=== PATIENT | male | born 1950 | race Caucasian/White ===

== ENCOUNTER 2017-04-25 15:00 | Outpatient (CLI) | payer OTHER ==
[2017-04-25 18:17] LABS: PSA FREE 1.83 ng/mL (0.16-2.81)
[2017-04-25 18:18] LABS: PSA TOTAL 6.182 ng/mL (0.000-2.000)
== END 2017-04-25 15:01 | disposition home or self-care (01) ==
LOC: LAB.F 15:00
PROVIDERS: ATTEND Family Medicine
DX: I25.10 Atherosclerotic heart disease of native coronary artery without angina pectoris (principal); E11.9 Type 2 diabetes mellitus without complications; E78.5 Hyperlipidemia, unspecified; I10 Essential (primary) hypertension; C61 Malignant neoplasm of prostate; R97.20 Elevated prostate specific antigen [PSA]
CPT/HCPCS: 36415; 84154

== ENCOUNTER 2017-12-03 08:00 | Outpatient (CLI) | payer OTHER ==
[2017-12-03 17:42] LABS: BILIRUBIN,URINE NEGATIVE (NEGATIVE); GLUCOSE, URINE (UA) NEGATIVE (NEGATIVE); KETONES,URINE (UA) NEGATIVE (NEGATIVE); LEUKOCYTE ESTERASE, URINE NEGATIVE (NEGATIVE); NITRITE,URINE NEGATIVE (NEGATIVE); OCCULT BLOOD,URINE NEGATIVE (NEGATIVE); PROTEIN,URINE NEGATIVE (NEGATIVE); UROBILINOGEN,URINE 0.2 (NORMAL) E.U./dL (NORMAL)
[2017-12-03 17:52] LABS: BACTERIA,URINE None Seen /HPF (None Seen); CLARITY,URINE CLEAR (CLEAR); RBC,URINE 0-5 /HPF (0-5); SQUAMOUS EPITHELIAL CELL,UR NONE SEEN (<= Few)
== END 2017-12-03 08:01 ==
LOC: LAB.R 08:00
PROVIDERS: ATTEND Nurse Practitioner Family
DX: R31.9 Hematuria, unspecified (principal)
CPT/HCPCS: 81001; 87086

== ENCOUNTER 2017-12-18 11:28 | Outpatient (CLI) | payer OTHER ==
--- NOTE | 2017-12-18 12:58 | XRAY Report ---
Procedure Date: 12/18/2017 Accession Number: [id number] / [id number] Procedure: XRS - Lumbar Spine 2 View CPT Code: FULL RESULT: EXAM: Lumbar Spine 2 View DATE: 12/18/2017 11:41 AM CLINICAL HISTORY: LOW BACK PAIN, CHRONIC COMPARISON: 04/14/2007 TECHNIQUE: 3 views. FINDINGS: Alignment: Mild degenerative dextroscoliosis. No subluxation. Bones: Five svx-vdp-dvhsfzu lumbar vertebral bodies are present. No fractures or bone lesions. Disks: Moderate degenerative disc disease. Facets: Moderate facet arthropathy. Sacroiliac Joints: Unremarkable. Soft Tissues: Normal. The visualized bowel gas pattern is normal. IMPRESSION: Moderate degenerative changes, with mild degenerative dextroscoliosis. No evidence of interval fracture. RADIA
== END 2017-12-18 11:29 | disposition home or self-care (01) ==
LOC: DI.S 11:28
PROVIDERS: ATTEND Family Medicine
DX: M51.36 Other intervertebral disc degeneration, lumbar region (principal); M47.896 Other spondylosis, lumbar region; M41.86 Other forms of scoliosis, lumbar region
CPT/HCPCS: 72100

== ENCOUNTER 2018-09-28 14:28 | Emergency (ER) | payer OTHER ==
--- NOTE | 2018-09-28 15:36 | XRAY Report ---
Reason: injury Procedure Date: 09/28/2018 Accession Number: [id number] / [id number] Procedure: XR - Hand 3 View RT CPT Code: FULL RESULT: EXAM: RIGHT HAND RADIOGRAPHY EXAM DATE: 09/28/2018 03:24 PM. CLINICAL HISTORY: Injury. COMPARISON: None. TECHNIQUE: 3 views. FINDINGS: Bones: There is a fracture deformity involving the distal tuft of the second distal phalanx. No intra-articular extension of fracture. Joints: No subluxation or dislocation. Soft Tissues: There are multiple punctate densities in the soft tissue or on skin surface of the distal digit. IMPRESSION: 1. Comminuted fracture deformity distal tip of the second distal phalanx with possible tiny foreign bodies or skin calcifications of the distal digit. RADIA
[2018-09-28] MEDS ORDERED: BUPIVACAINE 0.5% PF 10 ML VIAL SUBQ STA (16:40)
[2018-09-28] MEDS ORDERED: TETANUS/DIPHTHERIA/PERTUSSIS 0.5 ML SYRINGE IM ONE (17:40)
--- NOTE | 2018-09-28 17:43 | ED Physician Documentation ---
PD HPI UPPER EXT INJURY - Stated complaint Stated Complaint: R FINGER INJ - Chief complaint Chief Complaint: Laceration - History obtained from History obtained from: Patient - History of Present Illness Location: Right, Finger (index) Type of injury: Crush Where injury occurred: Work Timing - onset: Today Timing - duration: Hours Timing - details: Abrupt onset, Still present Improved by: Rest, Immobilization Worsened by: Moving, Palpating Associated symptoms: No: Weakness, Numbness, Tingling Contributing factors: No: Anticoagulated Similar symptoms before: Diagnosis (laceration) Recently seen: Not recently seen - Additonal information Additional information: 68-year-old male with a history of hypertension 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 The gear brought his fingertip into the gear and crushed it. He immediately pulled his finger out and now has come to the emergency department for repair. Review of Systems Constitutional: denies: Fever Throat: denies: Sore throat Respiratory: denies: Cough GI: denies: Vomiting PD PAST MEDICAL HISTORY - Past Medical History Past Medical History: No - Past Surgical History Past Surgical History: No - Present Medications Home Medications: Ambulatory Orders Medication Instructions Recorded Confirmed Amox/Clav 875/125 [Augmentin] 1 each PO Q12H #14 tablet 09/28/18 Atenolol 50 mg PO 09/28/18 Doxazosin [Cardura] 4 mg PO DAILY 09/28/18 09/28/18 Finasteride 5 mg PO 09/28/18 09/28/18 Hydrocodone/Acetaminophen 1 - 2 each PO Q6H PRN #14 tablet 09/28/18 [Hydrocodon-Acetaminophen 5-325] Lisinopril 10 mg PO 09/28/18 Simvastatin 80 mg PO 09/28/18 Zolpidem [Ambien] 10 mg PO HS 09/28/18 09/28/18 hydroCHLOROthiazide 25 mg PO 09/28/18 09/28/18 [Hydrochlorothiazide] - Allergies Allergies/Adverse Reactions: Allergies Allergy/AdvReac Type Severity Reaction Status Date / Time Sulfa (Sulfonamide Allergy Rash Verified 09/28/18 14:34 Antibiotics) - Social History Does the pt smoke?: No Smoking Status: Never smoker Does the pt drink ETOH?: Yes Does the pt have substance abuse?: No PD ED PE NORMAL - Vitals Vital signs reviewed: Yes (hypertensive ) - General General: Alert and oriented X 3, No acute distress, Well developed/nourished - HEENT HEENT: Atraumatic, PERRL, EOMI - Respiratory Respiratory: No respiratory distress - Derm Derm: Normal color, Warm and dry, No rash - Extremities Extremities: Other (The right index finger tip is macerated and the nail is torn apart. There are multiple flaps of skin and nail bed and the wound is heavily contaminated with metal shavings and grease. The wound extends to the distal tuft and a portion of tuft is missing. The maceration extends to the proximal nailbed and no further. 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 Comminuted fracture deformity distal tip of the second distal phalanx with possible tiny foreign bodies are skin calcifications in the distal digit.), EMP read indepedently, See rad report Procedures - Laceration (location) finger tip Length in cm: 3 Wound type: Stellate, Irregular, Flap, Heavily Contaminated Neurovascular status: Sensory intact, Motor intact, Vascular intact Anesthesia: Marcaine 0.5%, OTH (digital block) Wound Preparation: Hibiclens, Irrigated copiously NS, Debrided moderately, Debrided extensively, Wound explored, To the base, Wound edges modified, Multiple flaps aligned Skin layer closure: Nylon, Interrupted, Size #-0 - enter number (5-0), Other (2 sutures of vicryl are placed into the nailbed and the finger tip is shortened by this.) Other: Patient tolerated well, No complications, Neurovascular intact, Dressing applied, Tetanus booster given Complexity: Intermediate PD MEDICAL DECISION MAKING - ED course Complexity details: reviewed results, re-evaluated patient, considered differential, d/w patient ED course: 68-year-old male with a crush injury in a machine here to the fingertip has maceration loss of tissue and bone to the distal fingertip this is reconstructed with realignment of multiple flaps and extensive debriding. He does have open fracture and antibiotic prophylaxis is indicated. Departure - Departure Disposition: 01 Home, Self Care Clinical Impression: Nailbed injury, Open fracture of tuft of distal phalanx of finger Condition: Stable Instructions: ED Fx Finger Open, ED Avulsion Nail Complete Follow-Up: Vineet Richter MD [Primary Care Provider] - Prescriptions: Amox/Clav 875/125 [Augmentin] 1 each PO Q12H #14 tablet Hydrocodone/Acetaminophen [Hydrocodon-Acetaminophen 5-325] 1 - 2 each PO Q6H PRN #14 tablet PRN Reason: pain
[2018-09-28 18:00] VITALS: BP 134/79
== END 2018-09-28 18:01 | disposition home or self-care (01) ==
LOC: ED 14:28
DX: S67.190A Crushing injury of right index finger, initial encounter (principal); S62.630B Displaced fracture of distal phalanx of right index finger, initial encounter for open fracture; S61.320A Laceration with foreign body of right index finger with damage to nail, initial encounter; W31.89XA Contact with other specified machinery, initial encounter; Y93.89 Activity, other specified; Y92.89 Other specified places as the place of occurrence of the external cause; Y99.0 Civilian activity done for income or pay; Z23 Encounter for immunization; I10 Essential (primary) hypertension
CPT/HCPCS: 1040M; 13132; 73130; 90471; 90715; 99283; 99284

== ENCOUNTER 2021-08-30 10:41 | Outpatient (CLI) | payer OTHER | END 2021-08-30 10:42 | disposition home or self-care (01) | LOC: DI 10:41 | PROVIDERS: ATTEND Internal Medicine Cardiovascular Disease | DX: R06.00 Dyspnea, unspecified (principal); I25.10 Atherosclerotic heart disease of native coronary artery without angina pectoris; I51.7 Cardiomegaly | CPT/HCPCS: 93306 ==

== ENCOUNTER 2022-11-14 06:37 | Day surgery (SDC) | payer OTHER ==
[~2022-11-14 06:37] MED LIST: CYCLOPENTOLATE 1% OPHTH DROPS 2 ML ONE; KETOROLAC 0.45% OPHTH DROPS ONE; PHENYLEPHRINE 2.5% OPHTH 2 ML DROPS ONE; PROPARACAINE 0.5% OPHTH DROPS 15 ML ONE
[2022-11-14] MEDS ORDERED: LACTATED RINGERS 1,000 ML IV ONE ×2 (06:39→08:21)
--- NOTE | 2022-11-14 07:42 | ANESTHESIA ---
Pre-Anesthesia VS, & Labs - Diagnosis left cataract - Procedure left cataract with IOL Vital Signs: Temp Pulse Resp BP Pulse Ox O2 Flow Rate 36.3 C L 48 L 12 128/77 96 11/14/22 06:42 11/14/22 06:42 11/14/22 06:42 11/14/22 06:42 11/14/22 06:42 Height: 6 ft Weight (kg): 103.7 kg Body Mass Index: 31.0 BMI Classification: Obese - NPO >8 hours Home Medications and Allergies Home Medications: Ambulatory Orders Aspirin [Aspirin EC] 81 mg PO DAILY 11/13/22 Rosuvastatin Calcium [Crestor] 40 mg PO DAILY 11/13/22 Temazepam [Restoril] 15 mg PO HS 11/13/22 Meloxicam [Mobic] 15 mg PO DAILY 11/14/22 Doxazosin [Cardura] 4 mg PO BID 09/28/18 Finasteride 5 mg PO DAILY 09/28/18 atenoloL [Atenolol] 50 mg PO DAILY 09/28/18 hydroCHLOROthiazide [Hydrochlorothiazide] 25 mg PO DAILY 09/28/18 lisinopriL [Lisinopril] 10 mg PO DAILY 09/28/18 Aspirin [Aspirin EC] 81 mg PO DAILY 11/13/22 Rosuvastatin Calcium [Crestor] 40 mg PO DAILY 11/13/22 Temazepam [Restoril] 15 mg PO HS 11/13/22 Meloxicam [Mobic] 15 mg PO DAILY 11/14/22 Allergies/Adverse Reactions: Allergies Allergy/AdvReac Type Severity Reaction Status Date / Time Sulfa (Sulfonamide Allergy Rash Verified 09/28/18 14:34 Antibiotics) Anes History & Medical History - Anesthetic History Anesthesia Complications: reports: No previous complications - Medical History Cardiovascular: reports: Hypertension, High cholesterol, [place] Pulmonary: reports: None Gastrointestinal: reports: None Urinary: reports: Benign prostate hypertrophy Musculoskeletal: reports: Gout Skin: reports: None Smoking Status: Never smoker - Surgical History Cardiothoracic: reports: Coronary stent Exam General: Alert, Oriented x3 Dental: WNL, Dentures full Upper, Partials Lower Mouth Opening: Greater than 4 Fingerbreadths Neck Mobility: Normal Mallampati classification: I Thyromental Distance: greater than 6 cm Cardiovascular: Regular rate, Normal S1, Normal S2 Plan Anesthesia Type: MAC Consent for Procedure(s) Verified and Reviewed: Yes Code Status: Attempt Resuscitation ASA classification: 3-Severe systemic disease Is this case an emergency?: No
[2022-11-14] MEDS ORDERED: MIDAZOLAM 2 MG/2 ML VIAL ONE (07:49)
[2022-11-14] MEDS ORDERED: BRIMONIDINE 0.2% OPHTH DROPS 5 ML ONE (07:54)
[2022-11-14] MEDS ORDERED: EPINEPHrine 1 MG/ML AMP ONE (07:54)
[2022-11-14] MEDS ORDERED: TRIAMCIN/MOXIFLOX OPHTHALMIC 0.6 ML VIAL IO ONE ×2 (07:54→08:15)
[2022-11-14] MEDS ORDERED: TIMOLOL 0.5% OPHTH DROPS ONE (07:54)
[2022-11-14] MEDS ORDERED: VANCOMYCIN OPHTH (TOPICAL) 10 MG/ML SYRINGE ONE (07:55)
[2022-11-14] MEDS ORDERED: BSS/LIDOCAINE/EPINEPHRINE 1 ML VIAL ONE (07:55)
[2022-11-14] MEDS ORDERED: BRIMONIDINE 0.2% OPHTH DROPS 5 ML OPTH ONE (08:13)
[2022-11-14] MEDS ORDERED: fentaNYL 100 MCG/2 ML VIAL ONE (08:13)
[2022-11-14] MEDS ORDERED: TIMOLOL 0.5% OPHTH DROPS OPTH ONE (08:14)
[2022-11-14] MEDS ORDERED: EPINEPHrine 1 MG/ML AMP IR ONE (08:14)
[2022-11-14] MEDS ORDERED: BSS/LIDOCAINE/EPINEPHRINE 1 ML SYRINGE IO ONE (08:15)
[2022-11-14] MEDS ORDERED: VANCOMYCIN OPHTH (TOPICAL) 10 MG/ML SYRINGE TOP ONE (08:16)
[2022-11-14] MEDS ORDERED: PROPARACAINE 0.5% OPHTH DROPS 15 ML EACHEYE ONE (08:16)
--- NOTE | 2022-11-14 08:29 | OPERATIVE REPORT ---
Operative Report - Other Other Information/Narrative: Date of Surgery: 11/14/22 Preop Dx: Visually significant cataract left eye. This was the first cataract surgery. Postop Dx: Same Procedure: Phacoemulsification with posterior chamber intraocular lens implant left eye Surgeon: Dr. Alfredo Mueller Anesthesia: Monitored anesthesia care Complications: None Operative Indications: This is a 72-year-old M with progressive vision loss in the left eye due to 2-3+ nuclear sclerotic and 3+ cortical cataract. Best corrected visual acuity was 20/30 with glare to 20/70 vision in the left eye. Indications for surgery were: - Overall decrease in vision - Difficulty seeing street signs - Difficulty driving in low light or at night - Difficulty driving at night because of headlights from other vehicles - Difficulty with glare or bright lights in any situation The patient was consented at length concerning the risks and benefits of cataract surgery after which the patient expressed a desire to proceed with surgery. Operative Procedure: The patient was taken into OR#3 and placed under monitored anesthesia care. A surgical time-out was conducted confirming correct patient, correct procedure, and correct surgical site. The patient was given topical anesthesia and then prepped and draped in the usual sterile fashion. The eye was entered at the 6 and 3 oclock positions. Intracameral Shugarcaine was injected into the anterior chamber followed by a dispersive viscoelastic. A continuous-tear curvilinear capsulorhexis was performed. The nucleus was hydrodissected and phacoemulsified. The cortex was evacuated using automated infusion and aspiration. A cohesive viscoelastic was injected into the capsular bag and a 19.0 diopter intraocular lens was inserted into the bag. Infusion and aspiration were used to evacuate the viscoelastic materials from the eye. The wounds were hydrated and the eye inflated to physiologic pressure using balanced salt solution. Approximately 0.25ml of a mixture of triamcinolone and moxifloxacin was injected trans-sclerally into the vitreous in the inferotemporal quadrant using a 30 gauge cannula. An additional 0.25ml of a mixture of triamcinolone and moxifloxacin was injected subconjunctivally in the superior quadrant for infection and inflammation prophylaxis. Wound integrity was checked with Weck-Nai sponges. The patient was taken from the operating room in good condition and given post-op instructions.
--- NOTE | 2022-11-14 08:50 | ANESTHESIA POST OP EVALUATION ---
Anesthesia Post Eval - Post Anesthesia Eval Vitals: Last Vital Signs Temp 36.3 C L 11/14/22 08:21 Pulse 45 L 11/14/22 08:21 Resp 16 11/14/22 08:21 BP 116/75 11/14/22 08:21 Pulse Ox 97 11/14/22 08:21 O2 Flow Rate CV Function Including HR & BP: Stable Pain Control: Satisfactory Nausea & Vomiting: Negative Mental Status: Baseline Respiratory Status: Airway Patent Hydration Status: Satisfactory Anesthesia Complications: None
[2022-11-14 08:53] VITALS: BP 123/68
== END 2022-11-14 06:38 | disposition home or self-care (01) ==
LOC: SDS 06:37
PROVIDERS: ATTEND Ophthalmology
DX: H25.812 Combined forms of age-related cataract, left eye (principal); E66.9 Obesity, unspecified; Z68.31 Body mass index [BMI] 31.0-31.9, adult; I25.2 Old myocardial infarction; N40.0 Benign prostatic hyperplasia without lower urinary tract symptoms
CPT/HCPCS: 66984; A9270; J3490; J7120

== ENCOUNTER 2022-12-26 06:49 | Day surgery (SDC) | payer OTHER ==
[2022-12-26] MEDS ORDERED: LACTATED RINGERS 1,000 ML IV ONE (06:56)
--- NOTE | 2022-12-26 07:37 | ANESTHESIA ---
Pre-Anesthesia VS, & Labs - Diagnosis R cataract - Procedure R PhacoIOL Vital Signs: Temp Pulse Resp BP Pulse Ox O2 Flow Rate 36.2 C L 56 L 14 127/87 H 97 12/26/22 07:01 12/26/22 07:01 12/26/22 07:01 12/26/22 07:01 12/26/22 07:01 Height: 6 ft 4 in Weight (kg): 102 kg Body Mass Index: 27.3 BMI Classification: Overweight - NPO >8 hours Home Medications and Allergies Doxazosin [Cardura] 4 mg PO BID 09/28/18 Finasteride 5 mg PO DAILY 09/28/18 atenoloL [Atenolol] 50 mg PO DAILY 09/28/18 hydroCHLOROthiazide [Hydrochlorothiazide] 25 mg PO DAILY 09/28/18 lisinopriL [Lisinopril] 10 mg PO DAILY 09/28/18 Aspirin [Aspirin EC] 81 mg PO DAILY 11/13/22 Rosuvastatin Calcium [Crestor] 40 mg PO DAILY 11/13/22 Temazepam [Restoril] 15 mg PO HS 11/13/22 Meloxicam [Mobic] 15 mg PO DAILY 11/14/22 Allergies/Adverse Reactions: Allergies Allergy/AdvReac Type Severity Reaction Status Date / Time Sulfa (Sulfonamide Allergy Rash Verified 09/28/18 14:34 Antibiotics) Anes History & Medical History - Anesthetic History Anesthesia Complications: reports: No previous complications Family history of Anesthesia Complications: Denies Family history of Malignant Hyperthermia: Denies - Medical History Cardiovascular: reports: Hypertension, High cholesterol, [place] Pulmonary: reports: None Gastrointestinal: reports: None Urinary: reports: Benign prostate hypertrophy Musculoskeletal: reports: Gout Skin: reports: None Smoking Status: Never smoker - Surgical History Eyes Ears Nose Throat (EENT): reports: Cataracts Cardiothoracic: reports: Coronary stent Exam General: Alert, Oriented x3, Cooperative Dental: WNL Mouth Openin Fingerbreadth Neck Mobility: Normal Mallampati classification: I Thyromental Distance: 4-6 cm Respiratory: Lungs clear Cardiovascular: Regular rate Plan Anesthesia Type: MAC Consent for Procedure(s) Verified and Reviewed: Yes Code Status: Attempt Resuscitation ASA classification: 2-Mild systemic disease Is this case an emergency?: No
[2022-12-26] MEDS ORDERED: BRIMONIDINE 0.2% OPHTH DROPS 5 ML OPTH ONE (07:54)
[2022-12-26] MEDS ORDERED: TIMOLOL 0.5% OPHTH DROPS OPTH ONE (07:54)
[2022-12-26] MEDS ORDERED: EPINEPHrine 1 MG/ML AMP IR ONE (07:54)
[2022-12-26] MEDS ORDERED: TRIAMCIN/MOXIFLOX OPHTHALMIC 0.6 ML VIAL IO ONE ×3 (07:55→07:57)
[2022-12-26] MEDS ORDERED: BSS/LIDOCAINE/EPINEPHRINE 1 ML VIAL ONE ×2 (07:56→08:01)
[2022-12-26] MEDS ORDERED: TIMOLOL 0.5% OPHTH DROPS ONE (07:56)
[2022-12-26] MEDS ORDERED: BRIMONIDINE 0.2% OPHTH DROPS 5 ML ONE (07:56)
[2022-12-26] MEDS ORDERED: EPINEPHrine 1 MG/ML AMP ONE (07:56)
[2022-12-26] MEDS ORDERED: VANCOMYCIN OPHTH (TOPICAL) 10 MG/ML SYRINGE ONE (07:56)
[2022-12-26] MEDS ORDERED: BSS/LIDOCAINE/EPINEPHRINE 1 ML SYRINGE IO ONE (07:56)
[2022-12-26] MEDS ORDERED: VANCOMYCIN OPHTH (TOPICAL) 10 MG/ML SYRINGE TOP ONE (07:57)
[2022-12-26] MEDS ORDERED: PROPARACAINE 0.5% OPHTH DROPS 15 ML EACHEYE ONE (07:57)
[2022-12-26] MEDS ORDERED: MIDAZOLAM 2 MG/2 ML VIAL ONE (07:58)
[2022-12-26] MEDS ORDERED: LACTATED RINGERS 750 ML IV ONE (08:25)
--- NOTE | 2022-12-26 08:33 | OPERATIVE REPORT ---
Operative Report - Other Other Information/Narrative: Date of Surgery: 12/26/22 Preop Dx: Visually significant cataract right eye. Cataract surgery was performed in the left eye on . Postop Dx: Same Procedure: Phacoemulsification with posterior chamber intraocular lens implant right eye Surgeon: Dr. Alfredo Mueller Anesthesia: Monitored anesthesia care Complications: None Operative Indications: This is a 72-year-old M with progressive vision loss in the right eye due to 3+ nuclear sclerotic and 2-3+ cortical cataract. Best corrected visual acuity was 20/20 with glare to 20/50 vision in the right eye. Indications for surgery were: - Overall decrease in vision - Difficulty seeing words on a computer screen - Difficulty reading - Difficulty seeing words, closed captions, or game scores on TV - Difficulty seeing street signs - Difficulty driving in low light or at night - Difficulty driving at night because of headlights from other vehicles - Difficulty with glare or bright lights in any situation The patient was consented at length concerning the risks and benefits of cataract surgery after which the patient expressed a desire to proceed with surgery. Operative Procedure: The patient was taken into OR#3 and placed under monitored anesthesia care. A surgical time-out was conducted confirming correct patient, correct procedure, and correct surgical site. The patient was given topical anesthesia and then prepped and draped in the usual sterile fashion. The eye was entered at the 6 and 3 oclock positions. Intracameral Shugarcaine was injected into the anterior chamber followed by a dispersive viscoelastic. A continuous-tear curvilinear capsulorhexis was performed. The nucleus was hydrod issected and phacoemulsified. The cortex was evacuated using automated infusion and aspiration. A cohesive viscoelastic was injected into the capsular bag and a 19.0 diopter intraocular lens was inserted into the bag. Infusion and aspiration were used to evacuate the viscoelastic materials from the eye. The wounds were hydrated and the eye inflated to physiologic pressure using balanced salt solution. Approximately 0.25ml of a mixture of triamcinolone and moxifloxacin was injected trans-sclerally into the vitreous in the inferotemporal quadrant using a 30 gauge cannula. An additional 0.25ml of a mixture of triamcinolone and moxifloxacin was injected subconjunctivally in the superior quadrant for infection and inflammation prophylaxis. Wound integrity was checked with Weck-Nai sponges. The patient was taken from the operating room in good condition and given post-op instructions.
[2022-12-26 08:45] VITALS: BP 108/71
--- NOTE | 2022-12-26 15:37 | ANESTHESIA POST OP EVALUATION ---
Anesthesia Post Eval - Post Anesthesia Eval Vitals: Last Vital Signs Temp 36.2 C L 12/26/22 08:25 Pulse 71 12/26/22 08:44 Resp 14 12/26/22 08:44 BP 108/71 12/26/22 08:44 Pulse Ox 98 12/26/22 08:44 O2 Flow Rate CV Function Including HR & BP: Stable Pain Control: Satisfactory Nausea & Vomiting: Negative Mental Status: Baseline Respiratory Status: Airway Patent Hydration Status: Satisfactory Anesthesia Complications: None
== END 2022-12-26 06:50 | disposition home or self-care (01) ==
LOC: SDS 06:49
PROVIDERS: ATTEND Ophthalmology
DX: H25.811 Combined forms of age-related cataract, right eye (principal); I10 Essential (primary) hypertension
CPT/HCPCS: 66984; A9270; J3490; J7120

== ENCOUNTER 2023-11-11 07:04 | Outpatient (CLI) | payer MEDICARE ==
--- NOTE | 2023-11-11 15:46 | XRAY Report ---
PROCEDURE: Lumbar Spine 2-3V INDICATIONS: NEUROPATHY, CLAUDICATION TECHNIQUE: 3 views of the lumbar spine were acquired. COMPARISON: X-ray lumbar spine 12/18/2017 FINDINGS: Bones: 5 liv-gtw-pbemerm vertebrae are present. There is minimal rightward curvature. Trace retroli sthesis is present at L2 on L3 trace anterolisthesis of L3 on L4. Multilevel degenerative disc space narrowing severe at L4-5 and L5-S1 with severe foraminal narrowing at these levels. No vertebral body compression fractures. No suspicious bony lesions. Soft tissues: Overlying bowel gas pattern is normal. No suspicious soft tissue calcifications. IMPRESSION: Prominent degenerative changes most severe at L4-5, L5-S1. Reviewed by: Rahda Smallwood MD on 11/11/2023 3:44 PM PDT Approved by: Radha Smallwood MD on 11/11/2023 3:44 PM PDT Station ID: [id number]
--- NOTE | 2023-11-12 17:09 | Ultrasound Report ---
PROCEDURE: Ankle Brachial Index INDICATIONS: NEUROPATHY, CLAUDICATION TECHNIQUE: Ankle-brachial indices were obtained bilaterally and recorded. COMPARISONS: None. FINDINGS: Right brachial: 94 mmHg Right ankle: 127 mmHg Right ankle brachial index (KODI): 1.3 Left brachial: ): 98mmHg Left ankle: ): 112mmHg Left ankle brachial index (KODI): 1.1 Triphasic waveforms in the bilateral posterior tibial and dorsalis pedis arteries. Healing potential: Ankle pressures >55 mm Hg in non-diabetics and >80 mm Hg in diabetics are likely to achieve primary h ealing of ischemic foot ulcers. Toe pressures >30 mm Hg are likely to achieve primary healing of ischemic foot ulcers, toe or transme tatarsal amputations. IMPRESSION: 1.Bilateral resting ABIs are normal measuring 1.3 on the right and 1.1 on the left. 2.Triphasic waveforms in the bilateral posterior tibial and dorsalis pedis arteries. Reviewed by: Artur Malave MD on 11/12/2023 5:07 PM PDT Approved by: Artur Malave MD on 11/12/2023 5:07 PM PDT Station ID: [id number]
== END 2023-11-11 07:05 | disposition home or self-care (01) ==
LOC: DI 07:04
PROVIDERS: ATTEND Registered Nurse
DX: M47.816 Spondylosis without myelopathy or radiculopathy, lumbar region (principal); M47.817 Spondylosis without myelopathy or radiculopathy, lumbosacral region; I73.9 Peripheral vascular disease, unspecified
CPT/HCPCS: 93922

== ENCOUNTER 2023-12-02 07:49 | Outpatient (CLI) | payer MEDICARE ==
--- NOTE | 2023-12-02 17:08 | MRI Report ---
PROCEDURE: Lumbar Spine WO INDICATIONS: SPINAL STENOSIS TECHNIQUE: Multiplanar multisequential MRI images of the lumbar spine were obtained without intraven ous contrast. COMPARISON: None. FINDINGS: Alignment and Curvature: There is normal bony alignment. Bone Marrow: Marrow is of normal overall signal. No acute vertebral body compression fractures. No sacral fractures. Spinal Cord: Conus medullaris terminates at the L1 level. Visualized cord demonstrates normal signa l and size. Paraspinal Soft Tissues: Unremarkable perivertebral soft tissues. T12-L1: Normal in appearance. L1-L2: Disc height is maintained. Hypertrophic facet joints. Mild to moderate central stenosis. No foraminal stenosis L2-L3: Disc spaces maintained. Hypertrophic facet joints and ligamentum flavum laxity combined wit h mild disc bulge results in moderate central stenosis. Moderate right and no left foraminal stenosis L3-L4: Disc space narrowing with posterior disc bulge, hypertrophic facet joints and ligamentum fla vum laxity all combine to result in severe central stenosis. Severe left and moderate right foraminal stenosis L4-L5: Disc space narrowing posterior disc bulge and hypertrophic facet joints at. Mild central migel nosis. Severe bilateral foraminal stenosis L5-S1: Disc space narrowing with disc bulge. No central stenosis. Severe right and moderate left fo raminal stenosis IMPRESSION: Multilevel degenerative disc disease and arthropathy results in varying degrees of central and forami nal stenosis including severe central and foraminal stenosis L3-4 Reviewed by: Eliseo Villegas MD on 12/02/2023 4:06 PM JOSUE Approved by: Eliseo iVllegas MD on 12/02/2023 4:06 PM AKDT Station ID: [id number]
== END 2023-12-02 07:50 | disposition home or self-care (01) ==
LOC: DI 07:49
PROVIDERS: ATTEND Registered Nurse
DX: M51.36 Other intervertebral disc degeneration, lumbar region (principal); M48.061 Spinal stenosis, lumbar region without neurogenic claudication; M47.816 Spondylosis without myelopathy or radiculopathy, lumbar region; M51.37 Other intervertebral disc degeneration, lumbosacral region; M48.07 Spinal stenosis, lumbosacral region